=== PATIENT | female | born 1990 | race African-American/Black ===

== ENCOUNTER 2020-08-30 06:30 | Outpatient (REF) | payer OTHER, SELFPAY ==
[2020-08-30 06:54] LABS: COVID-19 Test Negative (Negative)
== END 2020-08-30 06:31 | disposition home or self-care (01) ==
LOC: HO.EMPCOV 06:30
PROVIDERS: Visit Provider Internal Medicine
DX: Z20.828 Contact with and (suspected) exposure to other viral communicable diseases (principal)
CPT/HCPCS: 36415; 87635; C9803

== ENCOUNTER 2020-09-05 14:00 | Outpatient (REF) | payer OTHER, SELFPAY ==
[2020-09-05 14:20] LABS: COVID-19 Test Negative (Negative)
== END 2020-09-05 14:01 | disposition home or self-care (01) ==
LOC: HO.EMPCOV 14:00
PROVIDERS: Visit Provider Internal Medicine
DX: Z20.822 Contact with and (suspected) exposure to COVID-19 (principal)
CPT/HCPCS: 36415; 87635; C9803

== ENCOUNTER 2020-09-14 13:32 | Outpatient (REF) | payer OTHER, SELFPAY ==
[2020-09-14 13:48] LABS: COVID-19 Test Negative (Negative)
== END 2020-09-14 13:33 | disposition home or self-care (01) ==
LOC: HO.EMPCOV 13:32
PROVIDERS: Visit Provider Internal Medicine
DX: Z20.822 Contact with and (suspected) exposure to COVID-19 (principal)
CPT/HCPCS: 36415; 87635; C9803

== ENCOUNTER 2020-09-26 14:36 | Outpatient (REF) | payer OTHER, SELFPAY ==
[2020-09-26 14:53] LABS: COVID-19 Test Negative (Negative); IDNOW Serial# 55D5AD1C
== END 2020-09-26 14:37 | disposition home or self-care (01) ==
LOC: HO.EMPCOV 14:36
PROVIDERS: Visit Provider Internal Medicine
DX: Z20.822 Contact with and (suspected) exposure to COVID-19 (principal)
CPT/HCPCS: 36415; 87635; C9803

== ENCOUNTER 2020-11-26 12:41 | Outpatient (REF) | payer OTHER, SELFPAY ==
[2020-11-26 13:00] LABS: COVID-19 Test Negative (Negative); IDNOW Serial# 55D5AD1C
== END 2020-11-26 12:42 | disposition home or self-care (01) ==
LOC: HO.LAB 12:41
PROVIDERS: Visit Provider Internal Medicine
DX: Z20.822 Contact with and (suspected) exposure to COVID-19 (principal)
CPT/HCPCS: 36415; 87635; C9803

== ENCOUNTER → 2021-01-11 09:12 | Outpatient (BNVA) | payer OTHER, SELFPAY | PROVIDERS: Visit Provider Physician Assistant Medical | DX: Z13.89 Encounter for screening for other disorder (principal) | CPT/HCPCS: 99203 ==

== ENCOUNTER → 2021-01-17 10:22 | Outpatient (BNVA) | payer OTHER, SELFPAY | PROVIDERS: Visit Provider Physician Assistant Medical | DX: Z13.89 Encounter for screening for other disorder (principal) | CPT/HCPCS: 99213 ==

== ENCOUNTER → 2021-03-01 11:07 | Outpatient (BNVA) | payer OTHER, SELFPAY | PROVIDERS: Visit Provider Physician Assistant Medical | DX: Z13.89 Encounter for screening for other disorder (principal) | CPT/HCPCS: 99213 ==

== ENCOUNTER 2021-03-12 11:52 | Emergency (ER) | payer OTHER, SELFPAY ==
--- NOTE | ~2021-03-12 | US_ITS ---
EXAMINATION: US OBSTETRICAL ULTRASOUND CLINICAL INFORMATION: Sided pain COMPARISON: None. LMP: 01/13/2021. Gestational age by maternal dates is 8 weeks 2 days. Estimated date of delivery by maternal dates is 10/20/2021. TECHNIQUE: Transabdominal endovaginal pelvic ultrasound FINDINGS: There is a single intrauterine gestational sac with visible yolk sac, embryo/fetus, and cardiac activity. There is no significant subchorionic hemorrhage or hematoma. HR: 160 beats per minute. CRL (crown rump length): 1.6 cm (8 weeks 1 day +/- 4 days). BABITA (estimated date of delivery): 08/20/2022 +/- 4 days. MATERNAL ADNEXA: The right maternal ovary measures 2.5 x 1.9 x 2.2 cm. No focal lesion. The left maternal ovary measures 3.2 x 3.4 x 3.1 cm. No focal lesion. There is no significant maternal adnexal mass. No maternal pelvic ascites. US/US OB <= 14 weeks fetus IMPRESSION: 1. Single intrauterine gestation with ultrasound gestational age of 8 weeks 1 day +/- 4 days. 2. Estimated date of delivery is 10/21/2021 +/- 4 days. 3. No maternal adnexal mass or pelvic ascites.
[2021-03-12 13:13] VITALS: BP 137/80; PULSE 83; RESP 18; TEMP 37.1; O2SAT 97; BMI 44.2
--- NOTE | 2021-03-12 14:37 | ED.PREGNANCY ---
HPI - General Chief complaint: OB <Lissette Oreilly NP - Last Filed: 03/12/21 17:52> Stated complaint: 8 weeks , lower abd pain <CARLOS Zheng Last Filed: 03/12/21 17:52> Time Seen by Provider: 03/12/21 14:09 <Lissette Oreilly NP - Last Filed: 03/12/21 17:52> Source: patient <Lissette Oreilly NP - Last Filed: 03/12/21 17:52> Mode of arrival: ambulatory <Lissette Oreilly NP - Last Filed: 03/12/21 17:52> Limitations: no limitations <CARLOS Zheng Last Filed: 03/12/21 17:52> History of Present Illness HPI Narrative: 31-year-old female previously healthy here with complaints of intermittent left lower abdominal pain for the last 2-3 days. No associated nausea, vomiting, diarrhea, urinary symptoms, fevers, chills. No vaginal discharge or bleeding. She is currently 8 weeks . . BABITA 12/2304/12/2022. Followed by [facility]. She has not had an ultrasound to confirm IUP yet <CARLOS Zheng Last Filed: 03/12/21 17:52> Related Data Allergies/Adverse reactions: Allergies Allergy/AdvReac Type Severity Reaction Status Date / Time No Known Allergies Allergy Verified 03/12/21 13:13 <CARLOS Zheng Last Filed: 03/12/21 17:52> Review of Systems Review of Systems: Yes all other systems are reviewed and are negative <CARLOS Zheng Last Filed: 03/12/21 17:52> Constitutional: Constitutional: Reports no additional constitutional complaints, Denies body ache(s), Denies chills, Denies fever(s), Denies headache(s) and Denies weakness <CARLOS Zheng Last Filed: 03/12/21 17:52> Eyes: Eyes: Reports no additional eye complaints and Denies change in vision <CARLOS Zheng Last Filed: 03/12/21 17:52> ENT: Reports system reviewed and no additional complaints, except as documented, Denies dizziness, Denies headache(s), Denies nasal congestion, Denies nasal discharge and Denies neck pain <Lissette Oreilly NP - Last Filed: 03/12/21 17:52> Cardiovascular: Cardiovascular: Reports no additional cardiovascular complaints, Denies chest pain, Denies leg edema and Denies dyspnea <Lissette Oreilly NP - Last Filed: 03/12/21 17:52> Respiratory: Respiratory: Reports no additional respiratory complaints, Denies cough and Denies dyspnea <Lissette Oreilly NP - Last Filed: 03/12/21 17:52> Gastrointestinal: Gastrointestinal: Reports no additional gastrointestinal complaints, Reports abdominal pain, Denies diarrhea, Denies nausea and Denies vomiting <Lissette Oreilly NP - Last Filed: 03/12/21 17:52> Genitourinary: Genitourinary: Reports no additional female genitourinary complaints, Denies abnormal vaginal bleeding, Denies urinary incontinence and Denies vaginal discharge <Lissette Oreilly NP - Last Filed: 03/12/21 17:52> Musculoskeletal: Musculoskeletal: Reports no additional musculoskeletal complaints, Denies back pain, Denies arthralgias, Denies joint swelling, Denies neck pain, Denies numbness and Denies tingling <Lissette Oreilly NP - Last Filed: 03/12/21 17:52> Integumentary/Breasts: Skin/Breast: Reports system reviewed and no additional complaints, except as docu and Denies rash <Lissette Oreilly NP - Last Filed: 03/12/21 17:52> Neurologic: Reports system reviewed and no additional complaints, except as documented, Denies Abnormal speech present, Denies dizziness, Denies headache(s), Denies numbness, Denies tingling and Denies weakness <Lissette Oreilly NP - Last Filed: 03/12/21 17:52> PMFSH Past Medical History Attestation statement: The following information was validated with the patient. <Lissette Oreilly NP - Last Filed: 03/12/21 17:52> Source: old records reviewed and nursing notes reviewed <Lissette Oreilly NP - Last Filed: 03/12/21 17:52> Social History Social History: Social History Alcohol intake: never Patient Tobacco Use Status: Never used Tobacco Use of substances other than those prescribed or required for medical reasons: No Advance Directives: Yes Advance Directives Information Provided: Yes Advance Directives on File: No Patient : Yes <Lissette Oreilly NP - Last Filed: 03/12/21 17:52> Physical Exam Vital Signs: Vital Signs: Last Vital Signs Temp 98.7 F 03/12/21 13:13 Pulse 84 03/12/21 17:54 Resp 16 03/12/21 17:54 BP 129/80 03/12/21 17:54 Pulse Ox 99 03/12/21 17:54 Body Mass Index 44.2 <Lissette Oreilly NP - Last Filed: 03/12/21 17:52> Vital Signs: Last Vital Signs Temp 98.7 F 03/12/21 13:13 Pulse 84 03/12/21 17:54 Resp 16 03/12/21 17:54 BP 129/80 03/12/21 17:54 Pulse Ox 99 03/12/21 17:54 Body Mass Index 44.2 <SUMMER Nair - Last Filed: 03/12/21 18:53> Const: General: cooperative, healthy appearing, comfortable and no acute distress <Lissette Oreilly NP - Last Filed: 03/12/21 17:52> Orientation/consciousness: patient oriented x3 <Lissette Oreilly NP - Last Filed: 03/12/21 17:52> Limitations: no limitations <Lissette Oreilly NP - Last Filed: 03/12/21 17:52> HENMT: Head: Yes normal to inspection <Lissette Oreilly NP - Last Filed: 03/12/21 17:52> Ears: hearing grossly normal bilaterally <Lissette Oreilly NP - Last Filed: 03/12/21 17:52> General nose exam: Normal external nose present <Lissette Oreilly NP - Last Filed: 03/12/21 17:52> Face and sinus: Yes normal facial exam <Lissette Oreilly NP - Last Filed: 03/12/21 17:52> Mouth: Normal oral and palatal mucosa present <Lissette Oreilly NP - Last Filed: 03/12/21 17:52> Throat: Yes posterior oropharynx normal <Lissette Oreilly NP - Last Filed: 03/12/21 17:52> Eyes: General: appearance normal, both eyes and all related structures <Lissette Oreilly NP - Last Filed: 03/12/21 17:52> Pupils: Equal, round and reactive pupils present <Lissette Oreilly NP - Last Filed: 03/12/21 17:52> Neck: Neck: Yes normal visual inspection <Lissette Oreilly NP - Last Filed: 03/12/21 17:52> Chest: Chest palpation & inspection: normal inspection of the chest <Lissette Oreilly NP - Last Filed: 03/12/21 17:52> Resp: Effort & Inspection: normal respiratory effort <Lissette Oreilly NP - Last Filed: 03/12/21 17:52> Auscultation: clear to auscultation bilaterally <Lissette Oreilly NP - Last Filed: 03/12/21 17:52> Cardio: Rate: regular rate <Lissette Oreilly NP - Last Filed: 03/12/21 17:52> Rhythm: regular rhythm <Lsisette Oreilly NP - Last Filed: 03/12/21 17:52> Peripheral pulses: Peripheral pulses 2+ throughout <Lissette Oreilly NP - Last Filed: 03/12/21 17:52> GI: Inspection: Yes normal to inspection <Lissette Oreilly NP - Last Filed: 03/12/21 17:52> Palpation (GI): Soft to palpation and Tenderness to palpation present (GI) (LLQ mild TTP. no rebound or guarding ) <Lissette Oreilly NP - Last Filed: 03/12/21 17:52> Auscultation: normal bowel sounds <Lissette Oreilly NP - Last Filed: 03/12/21 17:52> : Other: scant vaginal creamy discharge Lis presentation team member present <Lissette Oreilly NP - Last Filed: 03/12/21 17:52> External Female Exam: normal external appearance <Lissette Oreilly NP - Last Filed: 03/12/21 17:52> Speculum Exam - Vagina: normal appearance of the vagina <Lissette Oreilly NP - Last Filed: 03/12/21 17:52> Speculum Exam - Cervix: normal appearance of the cervix and Cervical os closed <Lissette Oreilly NP - Last Filed: 03/12/21 17:52> Bimanual exam- vagina & uterus: normal bimanual exam <Lissette Oreilly NP - Last Filed: 03/12/21 17:52> Bimanual Exam- Adnexa, other: normal adnexae <Lissette Oreilly NP - Last Filed: 03/12/21 17:52> Back/Spine/Pelvis: Thoracic/Lumbar Spine: thoracic and lumbar spine normal to inspection <Lissette Oreilly NP - Last Filed: 03/12/21 17:52> Skin: General skin exam: no rashes or lesions noted <Lissette Oreilly NP - Last Filed: 03/12/21 17:52> Neuro: General: patient oriented x3, no focal motor deficits and normal sensation to monofilament <Lissette Oreilly NP - Last Filed: 03/12/21 17:52> Cranial nerves: Yes Equal, round and reactive pupils present <Lissette Oreilly NP - Last Filed: 03/12/21 17:52> Cognition (Neuro): normal cognition <Lissette Oreilly NP - Last Filed: 03/12/21 17:52> Speech: No Abnormal speech present <Lissette Oreilly NP - Last Filed: 03/12/21 17:52> Gait exam (Neuro): Normal gait present <Lissette Oreilly NP - Last Filed: 03/12/21 17:52> Motor exam (neuro): 5/5 motor strength present throughout <Lissette Oreilly NP - Last Filed: 03/12/21 17:52> Extrem: General: Yes normal to inspection <Lissette Oreilly NP - Last Filed: 03/12/21 17:52> Course Course Course Narrative: Intermittent left lower quadrant abdominal pain with lost 2-3 days with a more severe episode which occurred at work just prior to arrival. No associated symptoms. Currently . No vaginal bleeding or discharge. Has not have an ultrasound to confirm IUP.. Has an appointment via phone with [facility] OB March 20. On exam mild tenderness left lower quadrant. No rebound or guarding. Hemodynamically stable. Eating a cheeseburger, Kazakh fries and drinking soda in the room. Will check lab, UA, ur preg. [id number]+urine , quant is pending. Additional labs pending. Ultrasound is pending. Pelvic exam unremarkable. Scant vaginal discharge. Testing sent for CT/NG and BV. Patient does not have much concern and so would defer treatment at this time 1800-Signed out to Prakash WHEELER <Lissette Oreilly NP - Last Filed: 03/12/21 17:52> US showing 1 IUP with BABITA 10/21/21. She is feeling better. She has an appointment with her OB at [facility] later this month. She has no cramping or vaginal bleeding. She is stable for d/c home with outpatient follow up. <SUMMER Nair - Last Filed: 03/12/21 18:53> MDM - OB/Uterine Contractions Medical Records Attestation: I reviewed the patient's medical records. <Lissette Oreilly NP - Last Filed: 03/12/21 17:52> Lab Data Attestation: I reviewed the patient's lab results. <Lissette Oreilly NP - Last Filed: 03/12/21 17:52> Result diagrams: : 03/12/21 15:38 03/12/21 15:38 <Lissette Oreilly NP - Last Filed: 03/12/21 17:52> Labs: Lab Results 03/12/21 03/12/21 03/12/21 Range/Units 15:38 15:38 15:41 WBC 9.2 (4.8-10.8) X10*3/uL RBC 4.62 (4.20-5.50) X10*6/uL Hgb 11.8 L (12.0-16.0) g/dl Hct 36.7 L (37-47) % MCV 79.4 L (80-98) fL MCH 25.5 L (27.0-33.0) pg MCHC 32.2 (31.0-35.0) g/dl RDW 14.8 (11.0-16.0) % Plt Count 253 (160-400) X10*3/uL MPV 9.4 (9.4-12.3) fL Immature Gran % (Auto) 0.5 H (0.0-0.4) % Neut % (Auto) 67.5 (45-73) % Lymph % (Auto) 25.4 (20-40) % Drew % (Auto) 5.5 (2-11) % Eos % (Auto) 0.8 (0-4) % Baso % (Auto) 0.3 (0-2) % Lymph # (Auto) 2.3 (1.2-4.9) X10*3/uL Drew # (Auto) 0.5 (0.1-1.2) X10*3/uL Eos # (Auto) 0.1 (0.0-0.4) X10*3/uL Baso # (Auto) 0.0 (0.0-0.2) X10*3/uL Abs Immat Gran (auto) 0.05 H (0.00-0.03) X10*3/uL Absolute Neuts (auto) 6.2 (2.0-8.3) X10*3/uL Absolute Nucleated RBC 0.000 (0.0-0.012) X10*3/uL Nucleated RBC % (auto) 0.0 (0.0-0.2) /100WBC Sodium 134 L (135-145) mmol/L Potassium 3.7 (3.3-5.1) mmol/L Chloride 101 (96-108) mmol/L Carbon Dioxide 24 (22-29) mmol/L Anion Gap 13 (12-20) BUN 7 L (9-16) mg/dL Creatinine 0.72 (0.5-1.4) mg/dL Estim Creat Clear Calc 135.9 Estimated GFR > 60 Random Glucose 209 H (60-115) mg/dL Calcium 9.1 (8.4-10.2) mg/dL Total Bilirubin 0.4 (0.0-1.0) mg/dL Direct Bilirubin < 0.2 (0.0-0.5) mg/dL AST 14 (5-31) U/L ALT 14 (0-31) U/L Alkaline Phosphatase 75 (39-117) U/L Total Protein 7.2 (6.5-8.0) g/dL Albumin 3.9 (3.5-5.0) g/dL Beta HCG, Quant 61240 mIU/mL Urine Color YELLOW Urine Appearance HAZY Urine pH 6.5 (5.0-8.0) Ur Specific [place] 1.025 (1.005-1.025) Urine Protein NEG (NEG-TRACE) MG/DL Urine Glucose (UA) NEG (NEG) MG/DL Urine Ketones NEG (NEG) MG/DL Urine Blood NEG (NEG) Urine Nitrite NEG (NEG) Ur Leukocyte Esterase NEG (NEG) Urine Test (NEGATIVE) 03/12/21 Range/Units 15:41 WBC (4.8-10.8) X10*3/uL RBC (4.20-5.50) X10*6/uL Hgb (12.0-16.0) g/dl Hct (37-47) % MCV (80-98) fL MCH (27.0-33.0) pg MCHC (31.0-35.0) g/dl RDW (11.0-16.0) % Plt Count (160-400) X10*3/uL MPV (9.4-12.3) fL Immature Gran % (Auto) (0.0-0.4) % Neut % (Auto) (45-73) % Lymph % (Auto) (20-40) % Drew % (Auto) (2-11) % Eos % (Auto) (0-4) % Baso % (Auto) (0-2) % Lymph # (Auto) (1.2-4.9) X10*3/uL Drew # (Auto) (0.1-1.2) X10*3/uL Eos # (Auto) (0.0-0.4) X10*3/uL Baso # (Auto) (0.0-0.2) X10*3/uL Abs Immat Gran (auto) (0.00-0.03) X10*3/uL Absolute Neuts (auto) (2.0-8.3) X10*3/uL Absolute Nucleated RBC (0.0-0.012) X10*3/uL Nucleated RBC % (auto) (0.0-0.2) /100WBC Sodium (135-145) mmol/L Potassium (3.3-5.1) mmol/L Chloride (96-108) mmol/L Carbon Dioxide (22-29) mmol/L Anion Gap (12-20) BUN (9-16) mg/dL Creatinine (0.5-1.4) mg/dL Estim Creat Clear Calc Estimated GFR Random Glucose (60-115) mg/dL Calcium (8.4-10.2) mg/dL Total Bilirubin (0.0-1.0) mg/dL Direct Bilirubin (0.0-0.5) mg/dL AST (5-31) U/L ALT (0-31) U/L Alkaline Phosphatase (39-117) U/L Total Protein (6.5-8.0) g/dL Albumin (3.5-5.0) g/dL Beta HCG, Quant mIU/mL Urine Color Urine Appearance Urine pH (5.0-8.0) Ur Specific [place] (1.005-1.025) Urine Protein (NEG-TRACE) MG/DL Urine Glucose (UA) (NEG) MG/DL Urine Ketones (NEG) MG/DL Urine Blood (NEG) Urine Nitrite (NEG) Ur Leukocyte Esterase (NEG) Urine Test POSITIVE H (NEGATIVE) <Lissette Oreilly, TRANSPORTATION MODELER - Last Filed: 03/12/21 17:52> Lab Results 03/12/21 03/12/21 03/12/21 Range/Units 15:38 15:38 15:41 WBC 9.2 (4.8-10.8) X10*3/uL RBC 4.62 (4.20-5.50) X10*6/uL Hgb 11.8 L (12.0-16.0) g/dl Hct 36.7 L (37-47) % MCV 79.4 L (80-98) fL MCH 25.5 L (27.0-33.0) pg MCHC 32.2 (31.0-35.0) g/dl RDW 14.8 (11.0-16.0) % Plt Count 253 (160-400) X10*3/uL MPV 9.4 (9.4-12.3) fL Immature Gran % (Auto) 0.5 H (0.0-0.4) % Neut % (Auto) 67.5 (45-73) % Lymph % (Auto) 25.4 (20-40) % Drew % (Auto) 5.5 (2-11) % Eos % (Auto) 0.8 (0-4) % Baso % (Auto) 0.3 (0-2) % Lymph # (Auto) 2.3 (1.2-4.9) X10*3/uL Drew # (Auto) 0.5 (0.1-1.2) X10*3/uL Eos # (Auto) 0.1 (0.0-0.4) X10*3/uL Baso # (Auto) 0.0 (0.0-0.2) X10*3/uL Abs Immat Gran (auto) 0.05 H (0.00-0.03) X10*3/uL Absolute Neuts (auto) 6.2 (2.0-8.3) X10*3/uL Absolute Nucleated RBC 0.000 (0.0-0.012) X10*3/uL Nucleated RBC % (auto) 0.0 (0.0-0.2) /100WBC Sodium 134 L (135-145) mmol/L Potassium 3.7 (3.3-5.1) mmol/L Chloride 101 (96-108) mmol/L Carbon Dioxide 24 (22-29) mmol/L Anion Gap 13 (12-20) BUN 7 L (9-16) mg/dL Creatinine 0.72 (0.5-1.4) mg/dL Estim Creat Clear Calc 135.9 Estimated GFR > 60 Random Glucose 209 H (60-115) mg/dL Calcium 9.1 (8.4-10.2) mg/dL Total Bilirubin 0.4 (0.0-1.0) mg/dL Direct Bilirubin < 0.2 (0.0-0.5) mg/dL AST 14 (5-31) U/L ALT 14 (0-31) U/L Alkaline Phosphatase 75 (39-117) U/L Total Protein 7.2 (6.5-8.0) g/dL Albumin 3.9 (3.5-5.0) g/dL Beta HCG, Quant 41533 mIU/mL Urine Color YELLOW Urine Appearance HAZY Urine pH 6.5 (5.0-8.0) Ur Specific [place] 1.025 (1.005-1.025) Urine Protein NEG (NEG-TRACE) MG/DL Urine Glucose (UA) NEG (NEG) MG/DL Urine Ketones NEG (NEG) MG/DL Urine Blood NEG (NEG) Urine Nitrite NEG (NEG) Ur Leukocyte Esterase NEG (NEG) Urine Test (NEGATIVE) 03/12/21 Range/Units 15:41 WBC (4.8-10.8) X10*3/uL RBC (4.20-5.50) X10*6/uL Hgb (12.0-16.0) g/dl Hct (37-47) % MCV (80-98) fL MCH (27.0-33.0) pg MCHC (31.0-35.0) g/dl RDW (11.0-16.0) % Plt Count (160-400) X10*3/uL MPV (9.4-12.3) fL Immature Gran % (Auto) (0.0-0.4) % Neut % (Auto) (45-73) % Lymph % (Auto) (20-40) % Drew % (Auto) (2-11) % Eos % (Auto) (0-4) % Baso % (Auto) (0-2) % Lymph # (Auto) (1.2-4.9) X10*3/uL Drew # (Auto) (0.1-1.2) X10*3/uL Eos # (Auto) (0.0-0.4) X10*3/uL Baso # (Auto) (0.0-0.2) X10*3/uL Abs Immat Gran (auto) (0.00-0.03) X10*3/uL Absolute Neuts (auto) (2.0-8.3) X10*3/uL Absolute Nucleated RBC (0.0-0.012) X10*3/uL Nucleated RBC % (auto) (0.0-0.2) /100WBC Sodium (135-145) mmol/L Potassium (3.3-5.1) mmol/L Chloride (96-108) mmol/L Carbon Dioxide (22-29) mmol/L Anion Gap (12-20) BUN (9-16) mg/dL Creatinine (0.5-1.4) mg/dL Estim Creat Clear Calc Estimated GFR Random Glucose (60-115) mg/dL Calcium (8.4-10.2) mg/dL Total Bilirubin (0.0-1.0) mg/dL Direct Bilirubin (0.0-0.5) mg/dL AST (5-31) U/L ALT (0-31) U/L Alkaline Phosphatase (39-117) U/L Total Protein (6.5-8.0) g/dL Albumin (3.5-5.0) g/dL Beta HCG, Quant mIU/mL Urine Color Urine Appearance Urine pH (5.0-8.0) Ur Specific [place] (1.005-1.025) Urine Protein (NEG-TRACE) MG/DL Urine Glucose (UA) (NEG) MG/DL Urine Ketones (NEG) MG/DL Urine Blood (NEG) Urine Nitrite (NEG) Ur Leukocyte Esterase (NEG) Urine Test POSITIVE H (NEGATIVE) <SUMMER Nair - Last Filed: 03/12/21 18:53> Discharge Plan Discharge Clinical Impression: Qualifiers: Weeks of gestation: 8 weeks Qualified Code(s): Z3A.08 - 8 weeks gestation of <Lissette Oreilly NP - Last Filed: 03/12/21 17:52> Patient Disposition: Home, Self-Care <Lissette Oreilly NP - Last Filed: 03/12/21 17:52> Instructions: (ED) <Lissette Oreilly NP - Last Filed: 03/12/21 17:52> Additional Instructions: Your lab workup today was normal. Your urine test was normal. Your ultrasound showed 1 intrauterine wtih estimated delivery date of 10/21/21. Recommend rest and increasing your water intake. Take Tylenol 650 mg every 6 hours as needed for pain. Follow up with your OB as scheduled. If you develop worsening pain or vaginal bleeding come back to the ER right away for further evaluation. <Lissette Oreilly NP - Last Filed: 03/12/21 17:52> Stand Alone Forms: Work/School Release <Lissette Oreilly NP - Last Filed: 03/12/21 17:52>
[2021-03-12 16:00] LABS: Glucose Urine UA NEG (NEG); Leukocyte Esterase Urine NEG (NEG); Nitrite Urine NEG (NEG); PH 6.5 (5.0-8.0); Specific Gravity - Urine 1.025 (1.005-1.025); Urine Blood NEG (NEG); Urine Ketones NEG (NEG); Urine Protein NEG (NEG-TRACE)
[2021-03-12 16:01] LABS: Appearance Urine HAZY; Color Urine YELLOW; UPreg QC Valid YES; Urine Pregnancy POSITIVE (NEGATIVE)
[2021-03-12 16:05] LABS: MANUAL DIFF FLAG NO
[2021-03-12 16:07] LABS: Basophils Percent Auto 0.3 % (0-2); Eosinophils Absolute Auto 0.1 X10*3/uL (0.0-0.4); Eosinophils Percent Auto 0.8 % (0-4); Hematocrit 36.7 % (37-47); Hemoglobin 11.8 g/dl (12.0-16.0); Imm Gran Abs Auto 0.05 X10*3/uL (0.00-0.03); Imm Gran Pct Auto 0.5 % (0.0-0.4); Lymphocytes Absolute Auto 2.3 X10*3/uL (1.2-4.9); Lymphocytes Percent Auto 25.4 % (20-40); Mean Corpuscular HGB Conc 32.2 g/dl (31.0-35.0); Mean Corpuscular Hemoglobin 25.5 pg (27.0-33.0); Mean Corpuscular Volume 79.4 fL (80-98); Mean Platelet Volume 9.4 fL (9.4-12.3); Monocytes Absolute Auto 0.5 X10*3/uL (0.1-1.2); Monocytes Percent Auto 5.5 % (2-11); Neutrophils Absolute Auto 6.2 X10*3/uL (2.0-8.3); Neutrophils Percent Auto 67.5 % (45-73); Platelet Count 253 X10*3/uL (160-400); Red Blood Count 4.62 X10*6/uL (4.20-5.50); Red Cell Distribution Width 14.8 % (11.0-16.0); White Blood Count 9.2 X10*3/uL (4.8-10.8)
[2021-03-12 16:34] LABS: Alanine Aminotransferase 14 U/L (0-31); Albumin Level 3.9 g/dL (3.5-5.0); Alkaline Phosphatase 75 U/L (39-117); Anion Gap 13 (12-20); Aspartate Amino Transferase 14 U/L (5-31); Bilirubin Direct < 0.2 mg/dL (0.0-0.5); Bilirubin Total 0.4 mg/dL (0.0-1.0); Blood Urea Nitrogen 7 mg/dL (9-16); Calcium 9.1 mg/dL (8.4-10.2); Carbon Dioxide 24 mmol/L (22-29); Chloride 101 mmol/L (96-108); Creatinine Clr Calc Pharmacy 135.9; Estimated Glomerular Filt Rate > 60; Glucose Random 209 mg/dL (60-115); Potassium 3.7 mmol/L (3.3-5.1); Sodium 134 mmol/L (135-145); Total Protein 7.2 g/dL (6.5-8.0)
--- NOTE | 2021-03-12 16:55 | PC.NURSE ---
Patient to ultrasound
[2021-03-12 17:03] LABS: HCG Quantitative 56451 mIU/mL
[2021-03-12 17:54] VITALS: BP 129/80; PULSE 84; RESP 16; O2SAT 99
[2021-03-12] MEDS: Acetaminophen 325 MG TABLET 975 MG PO (17:56)
[2021-03-13 02:38] LABS: CT PCR NOT DETECTED (Not Detect.); NG PCR NOT DETECTED (Not Detect.)
[2021-03-13 08:40] LABS: BV Int Neg Control Negative (Negative); BV Int Pos Control Positive (Positive)
== END 2021-03-12 19:02 | disposition home or self-care (01) ==
PROVIDERS: Nurse Practitioner Family; Emergency Provider Emergency Medicine
DX: O26.891 Other specified pregnancy related conditions, first trimester (principal); R10.30 Lower abdominal pain, unspecified; Z3A.08 8 weeks gestation of pregnancy
CPT/HCPCS: 36415; 76801; 80048; 80076; 81003; 81025; 84702; 85025; 87480; 87491; 87510; 87591; 87660; 99284